=== PATIENT | male | born 1985 | race Caucasian/White ===

== ENCOUNTER 2019-11-13 16:37 | Emergency (ER) | payer SELFPAY ==
[~2019-11-13] VITALS: Ht 167.6 cm; Wt 79.4 kg
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
--- NOTE | 2019-11-13 17:09 | NUR ---
PT TO CT ON MOOKIE
--- NOTE | 2019-11-13 18:16 | NUR ---
Patient discharged to home in stable condition. Written and verbal after care instructions given. Patient verbalizes understanding of instruction. Pt ambulatory with a steady gait
[2019-11-13 18:18] VITALS: BP 138/90
== END 2019-11-13 18:18 | disposition home or self-care (01) ==
LOC: ER 16:44
DX: R51 Headache (principal); M25.552 Pain in left hip; V49.49XA Driver injured in collision with other motor vehicles in traffic accident, initial encounter; Y93.89 Activity, other specified; Y92.488 Other paved roadways as the place of occurrence of the external cause; Y99.8 Other external cause status
CPT/HCPCS: 70450-TC; 71045-TC; 73502